=== PATIENT | female | born 1995 | race Caucasian/White ===

== ENCOUNTER 2021-08-25 23:09 | Emergency (ER) | payer OTHER, SELFPAY ==
[2021-08-25 23:21] VITALS: BP 149/83; PULSE 71; RESP 18; TEMP 36.6; O2SAT 98; BMI 29.2
--- NOTE | 2021-08-25 23:58 | ED_ITS ---
HPI - General Chief complaint: Vaginal Bleeding Stated complaint: vaginal bleeding, 7 weeks preg Source: patient Mode of arrival: ambulatory Limitations: no limitations History of Present Illness HPI Narrative: 26-year-old female presents with vaginal bleeding and lower abdominal cramping and is 7 weeks . 2 para 1 a 0. States that she had complicated with her 1st, needed emergency and is having anxiety regarding the abdominal pain and cramping. MD Complaint: abdominal pain and vaginal bleeding Onset (ago): day(s) (2) Pain Consistency: intermittent Location: pelvis Severity: moderate Severity scale (1-10): 4 Quality: Cramping Radiation: pelvis Relieving factors: none Associated symptoms: vaginal bleeding Vaginal discharge: none Vaginal bleeding: light Patient : Yes Number of Weeks : 7 OB History - Current : no complications OB History - Previous Pregnancies: other care: none and followed by OB Related Data : 2 Para: 1 Total number of abortions (spontaneous and elective): 0 Allergies Allergy/AdvReac Type Severity Reaction Status Date / Time No Known Allergies Allergy Unverified 05/01/20 19:09 [No Known Allergies*] pine trees Allergy Unknown Uncoded 12/13/16 00:00 Raspberry Allergy Unknown hives Uncoded 02/21/20 00:00 raspberry Allergy Unknown Uncoded 12/13/16 00:00 Review of Systems Review of Systems: Constitutional: No Fever, No Chills ENT/Mouth: No sore throat, No Rhinorrhea Eyes: No Eye Pain, No Redness Cardiovascular: No Chest Pain, No SOB Respiratory: No Cough, No Sputum, No Wheezing Gastrointestinal: positive Nausea, No Vomiting, No Diarrhea, positive abdominal pain, Genitourinary: positive irregular bleeding, No Dysuria, No Urinary Frequency, positive pelvic pain Musculoskeletal: No Myalgias Skin: No rash Neuro: No Weakness, No Headache Psych: No Anxiety/Panic, No Depression Heme/Lymph: No bruising, No Lymphadenopathy Endocrine: No Polyuria, No Polydipsia Yes all other systems are reviewed and are negative [facility] Past Medical History Attestation statement: The following information was validated with the patient. Source: old records reviewed Medical History Amenorrhea Asthma Dysmenorrhea Surgical History S/P : 2 Para: 1 Total number of abortions (spontaneous and elective): 0 Family History Family History Mother No problems noted. Maternal Aunt Cancer Brother No problems noted. Sister No problems noted. Sister No problems noted. Social History Social History Advance Directives: No Advance Directives Information Provided: Yes Patient : Yes Physical Exam Vital Signs: Vital Signs: Last Vital Signs Temp 98.2 F 08/25/21 23:59 Pulse 65 08/25/21 23:59 Resp 16 08/25/21 23:59 BP 128/72 08/25/21 23:59 Pulse Ox 97 08/25/21 23:59 BMI result Body Mass Index 29.2 Appearance: Alert. Oriented X3. Moderate emotional distress. Eyes: Pupils equal, round and reactive to light. ENT: Pharynx normal. Neck: Normal inspection. Neck supple. CVS: Normal heart rate and rhythm. Pulses normal. Respiratory: No respiratory distress. Breath sounds normal. Abdomen: Soft and nontender. Skin: Skin warm and dry. Normal skin color. Normal skin turgor. Extremities: No lower extremity edema. Gait well-balanced well coordinated. Neuro: No motor deficit. No sensory deficit. Cranial nerves 2-12 intact. : General: Yes bladder normal to palpation External Female Exam: normal external appearance Speculum Exam - Vagina: normal appearance of the vagina, normal palpation, no foreign bodies, no lacerations, no lesions, vaginal bleeding, No tissue present in vagina and nontender Speculum Exam - Cervix: normal appearance of the cervix, normal palpation, Cervical os closed, Abnormal cervical discharge present (Scant) bloody; Negative for malodorous and nontender Bimanual exam- vagina & uterus: normal bimanual exam, normal palpation, uterine size normal, bladder normal to palpation, consistency normal, normal palpation, No Cervical tenderness present and no cervical motion tenderness Bimanual Exam- Adnexa, other: normal adnexae OB/external & speculum: vaginal bleeding; No no foreign bodies and no tissue noted in vagina Course Course Course Narrative: 26-year-old female presents with 2 days of abdominal cramping and 1 day of scant bleeding and is approximately 7 weeks . Patient is visibly anxious, states that she has concerns because her 1st had complications which required emergent . Her 2-year-old daughter is healthy. Patient is sexually active, did not have sex yesterday, does not report any pain or bleeding with sex. Denies trauma or abuse. Does not report any fevers, chills, headaches, dizziness, or any other concerning symptoms at this time. Will order labs, complete pelvic exam, and hCG level. 12:20 a.m. pelvic exam completed with RN and ED integration technician as customer care assistant. No complications, patient tolerated procedure well. 12:40 a.m. hCG 3201. Likely too early for accurate ultrasound at this time. Will have patient follow-up with OBGYN as an outpatient. Blood type is O- positive. No need for RhoGAM at this time. Patient verbalized understanding of and agrees to plan of care discharge home and Understands signs and symptoms indicating need for emergent intervention. MDM - OB/Uterine Contractions MDM Narrative Medical decision making narrative: Threatened , ectopic Medical Records Attestation: I reviewed the patient's medical records. Lab Data Attestation: I reviewed the patient's lab results. Result diagrams: 08/26/21 00:15 08/26/21 00:15 Labs: Lab Results 08/26/21 08/26/21 08/26/21 Range/Units 00:15 00:15 00:15 WBC 8.7 (4.8-10.8) X10*3/uL RBC 3.98 L (4.20-5.50) X10*6/uL Hgb 12.9 (12.0-16.0) g/dl Hct 38.3 (37.0-47.0) % MCV 96.2 (80.0-98.0) fL MCH 32.4 (27.0-33.0) pg MCHC 33.7 (31.0-35.0) g/dl RDW 12.2 (11.0-16.0) % Plt Count 255 (160-400) X10*3/uL MPV 9.0 L (9.4-12.3) fL Immature Gran % (Auto) 0.3 (0.0-0.4) % Neut % (Auto) 58.3 (45-73) % Lymph % (Auto) 29.9 (20-40) % Bath % (Auto) 9.7 (2-11) % Eos % (Auto) 1.3 (0-4) % Baso % (Auto) 0.5 (0-2) % Lymph # (Auto) 2.6 (1.2-4.9) X10*3/uL Bath # (Auto) 0.8 (0.1-1.2) X10*3/uL Eos # (Auto) 0.1 (0.0-0.4) X10*3/uL Baso # (Auto) 0.0 (0.0-0.2) X10*3/uL Abs Immat Gran (auto) 0.03 (0.00-0.03) X10*3/uL Absolute Neuts (auto) 5.1 (2.0-8.3) x10*3/uL Absolute Nucleated RBC 0.000 (0.0-0.012) X10*3/uL Nucleated RBC % (auto) 0.0 (0.0-0.2) /100WBC Sodium 138 (135-145) mmol/L Potassium 4.0 (3.3-5.1) mmol/L Chloride 108 (96-108) mmol/L Carbon Dioxide 24 (22-29) mmol/L Anion Gap 10 L (12-20) BUN 8 L (9-16) mg/dL Creatinine 0.74 (0.5-1.4) mg/dL Estim Creat Clear Calc 112.7 Estimated GFR > 60 Random Glucose 113 (60-115) mg/dL Beta HCG, Quant 3251 mIU/mL Blood Type O Positive Procedures Perimortem Number of Weeks : 7 Discharge Plan Discharge Clinical Impression: Threatened Patient Disposition: Home, Self-Care Instructions: Threatened Miscarriage (ED) Additional Instructions: You were evaluated for 1st trimester vaginal bleeding. Please follow-up with OBGYN. I have referred you to Dr. Cameron. Please call and request an appo intment. You may also choose your prior OBGYN or physician of her choosing. HCG 3251. Blood type O positive. Thank you for choosing this emergency department for evaluation. Please follow-up with primary care physician as needed. Return to the emergency department for any new, concerning, or worsening symptoms. Referrals: Thom Cameron MD [Physician] - 2 days (Threatened miscarriage)
[2021-08-25 23:59] VITALS: BP 128/72; PULSE 65; RESP 16; TEMP 36.8; O2SAT 97
[2021-08-26 00:21] LABS: MANUAL DIFF FLAG NO
[2021-08-26 00:22] LABS: Basophils Percent Auto 0.5 % (0-2); Eosinophils Absolute Auto 0.1 X10*3/uL (0.0-0.4); Eosinophils Percent Auto 1.3 % (0-4); Hematocrit 38.3 % (37.0-47.0); Hemoglobin 12.9 g/dl (12.0-16.0); Imm Gran Abs Auto 0.03 X10*3/uL (0.00-0.03); Imm Gran Pct Auto 0.3 % (0.0-0.4); Lymphocytes Absolute Auto 2.6 X10*3/uL (1.2-4.9); Lymphocytes Percent Auto 29.9 % (20-40); Mean Corpuscular HGB Conc 33.7 g/dl (31.0-35.0); Mean Corpuscular Hemoglobin 32.4 pg (27.0-33.0); Mean Corpuscular Volume 96.2 fL (80.0-98.0); Monocytes Absolute Auto 0.8 X10*3/uL (0.1-1.2); Monocytes Percent Auto 9.7 % (2-11); Neutrophils Absolute Auto 5.1 x10*3/uL (2.0-8.3); Neutrophils Percent Auto 58.3 % (45-73); Platelet Count 255 X10*3/uL (160-400); Red Blood Count 3.98 X10*6/uL (4.20-5.50); Red Cell Distribution Width 12.2 % (11.0-16.0); White Blood Count 8.7 X10*3/uL (4.8-10.8)
[2021-08-26 00:36] LABS: Anion Gap 10 (12-20); Blood Urea Nitrogen 8 mg/dL (9-16); Carbon Dioxide 24 mmol/L (22-29); Chloride 108 mmol/L (96-108); Creatinine Clr Calc Pharmacy 112.7; Estimated Glomerular Filt Rate > 60; Glucose Random 113 mg/dL (60-115); Sodium 138 mmol/L (135-145)
[2021-08-26 00:43] LABS: HCG Quantitative 3251 mIU/mL
== END 2021-08-26 01:25 | disposition home or self-care (01) ==
PROVIDERS: Nurse Practitioner Family; Emergency Provider Student in an Organized Health Care Education/Training Program
DX: O26.91 Pregnancy related conditions, unspecified, first trimester (principal); O20.0 Threatened abortion; Z3A.01 Less than 8 weeks gestation of pregnancy; Z79.899 Other long term (current) drug therapy
CPT/HCPCS: 36415; 80048; 84702; 85025; 86900; 86901; 99284

== ENCOUNTER 2021-08-26 15:17 | Outpatient (REF) | payer OTHER, SELFPAY ==
--- NOTE | ~2021-08-26 | US_ITS ---
EXAMINATION: US OBSTETRICAL CLINICAL INFORMATION: Threatened . Quantitative beta hCG 10/14/2000. Abdominal cramping and bleeding. COMPARISON: None. LMP: 06/08/2021. Gestational age by maternal dates is 11 weeks 2 days. Estimated date of delivery by maternal dates is 03/15/2022. TECHNIQUE: Transabdominal and transvaginal 1st trimester OB ultrasound. Transvaginal exam was performed for better visualization of the gestational sac. FINDINGS: The uterus is normal in size and shape. There is an intrauterine gestational sac. This may be positioned slightly low within the endometrial cavity. [place]-rump length measures 0.4 cm which would suggest gestational age 6 weeks 1 day with estimated date of delivery of 04/20/2022. This is significantly behind date from LMP by over 1 month. There is a low heart rate of 76 bpm. There is a yolk sac. There is a hypoechoic area adjacent to the gestational sac questionable for subchorionic hemorrhage. This measures 1.6 cm. There are small echogenic foci in the left uterine fundus and cervix questionable for calcifications. The right ovary is normal-appearing and measures 3.4 x 2 x 2 cm. There is a 1.5 cm right ovarian cyst. Left ovary is normal-appearing and measures 2.8 x 1.2 x 1.8 cm. There is a small amount of fluid in the maternal pelvis. US/US OB <= 14 weeks fetus IMPRESSION: Single intrauterine gestation with ultrasound gestational age of 6 weeks 1 day +/- 4 days. Estimated date of delivery is 04/20/2022 +/- 4 days. This is behind date from LMP. There is a low heart rate of 76 bpm. There is a 1.6 cm hypoechoic area adjacent to the gestational sac questionable for subchorionic hemorrhage. No adnexal mass. Small amount of maternal ascites.
== END 2021-08-26 15:18 | disposition home or self-care (01) ==
LOC: HO.US 15:17
PROVIDERS: Visit Provider Obstetrics & Gynecology
DX: O20.0 Threatened abortion (principal); Z3A.11 11 weeks gestation of pregnancy
CPT/HCPCS: 76801

== ENCOUNTER 2021-08-27 08:16 | Outpatient (REF) | payer OTHER, SELFPAY ==
[2021-08-27 17:03] LABS: CT PCR NOT DETECTED (Not Detect.); NG PCR NOT DETECTED (Not Detect.)
== END 2021-08-27 08:17 | disposition home or self-care (01) ==
LOC: HO.LAB 08:16
PROVIDERS: Visit Provider Obstetrics & Gynecology
DX: O20.0 Threatened abortion (principal)
CPT/HCPCS: 87491; 87591; 99212

== ENCOUNTER 2021-10-07 11:51 | Outpatient (REF) | payer OTHER, SELFPAY ==
[2021-10-07 12:53] LABS: HCG Quantitative < 2 mIU/mL
== END 2021-10-07 11:52 | disposition home or self-care (01) ==
LOC: HO.LAB 11:51
PROVIDERS: PCP Nurse Practitioner Family; Visit Provider Obstetrics & Gynecology
DX: O03.9 Complete or unspecified spontaneous abortion without complication (principal)
CPT/HCPCS: 36415; 84702

== ENCOUNTER → 2021-10-12 11:45 | Outpatient (BNVA) | payer OTHER, SELFPAY | PROVIDERS: Visit Provider Obstetrics & Gynecology ==

== ENCOUNTER → 2022-03-23 13:05 | Outpatient (BNVA) | payer OTHER, SELFPAY | PROVIDERS: Visit Provider Advanced Practice Midwife | DX: O99.619 Diseases of the digestive system complicating pregnancy, unspecified trimester (principal); O34.219 Maternal care for unspecified type scar from previous cesarean delivery; O09.899 Supervision of other high risk pregnancies, unspecified trimester; K59.00 Constipation, unspecified; Z87.59 Personal history of other complications of pregnancy, childbirth and the puerperium; Z87.42 Personal history of other diseases of the female genital tract | CPT/HCPCS: 99212 ==

== ENCOUNTER 2022-03-26 11:27 | Outpatient (REF) | payer OTHER, SELFPAY ==
--- NOTE | ~2022-03-26 | US_ITS ---
EXAMINATION: US OBSTETRICAL ULTRASOUND CLINICAL INFORMATION: Positive test COMPARISON: None. LMP: 01/27/2022. Gestational age by maternal dates is 8 weeks 2 days. Estimated date of delivery by maternal dates is 11/03/2022. TECHNIQUE: Transabdominal first trimester OB ultrasound FINDINGS: There is a single intrauterine gestational sac with visible yolk sac, embryo/fetus, and cardiac activity. There is no significant subchorionic hemorrhage or hematoma. HR: 169 beats per minute. CRL (crown rump length): 2.1 cm (8 weeks 6 days +/- 4 days). JI (estimated date of delivery): 10/30/2022 +/- 4 days. MATERNAL ADNEXA: The ovaries are normal. There is no fluid in the pelvis. US/US OB <= 14 weeks fetus IMPRESSION: 1. Single intrauterine gestation with ultrasound gestational age of 8 weeks 6 days +/- 4 days. 2. Estimated date of delivery is 10/30/2022 +/- 4 days. 3. No maternal adnexal mass or pelvic ascites.
== END 2022-03-26 11:28 | disposition home or self-care (01) ==
LOC: HO.US 11:27
PROVIDERS: Visit Provider Advanced Practice Midwife
DX: O99.611 Diseases of the digestive system complicating pregnancy, first trimester (principal); K59.00 Constipation, unspecified; Z3A.08 8 weeks gestation of pregnancy; Z87.42 Personal history of other diseases of the female genital tract
CPT/HCPCS: 76801

== ENCOUNTER 2022-04-02 12:05 | Emergency (ER) | payer OTHER, SELFPAY ==
[2022-04-02 12:08] VITALS: BP 145/95; PULSE 70; RESP 18; TEMP 37.1; O2SAT 99; BMI 24.7
[2022-04-02 12:23] LABS: Hematocrit 46.2 % (37.0-47.0); Hemoglobin 16.2 g/dl (12.0-16.0); Mean Corpuscular HGB Conc 35.1 g/dl (31.0-35.0); Mean Corpuscular Hemoglobin 32.2 pg (27.0-33.0); Mean Corpuscular Volume 91.8 fL (80.0-98.0); Mean Platelet Volume 8.6 fL (9.4-12.3); Platelet Count 315 X10*3/uL (160-400); Red Blood Count 5.03 X10*6/uL (4.20-5.50); White Blood Count 13.7 X10*3/uL (4.8-10.8)
[2022-04-02 12:40] LABS: Anion Gap 15 (12-20); Blood Urea Nitrogen 7 mg/dL (9-16); Calcium 11.5 mg/dL (8.4-10.2); Carbon Dioxide 25 mmol/L (22-29); Chloride 97 mmol/L (96-108); Creatinine Clr Calc Pharmacy 96.6; Estimated Glomerular Filt Rate > 60; Glucose Random 108 mg/dL (60-115); Potassium 3.9 mmol/L (3.3-5.1); Sodium 133 mmol/L (135-145)
[2022-04-02 12:43] LABS: COVID-19 Test Negative (Negative); IDNOW Serial# 16C4AD1C
[2022-04-02 13:08] LABS: HCG Quantitative 115259 mIU/mL
--- NOTE | 2022-04-02 15:49 | PC.NURSE ---
ATTEMPTED TO CALL PATIENT INTO ED. NO ANSWER IN WAITING ROOM
--- NOTE | 2022-04-02 16:27 | PC.NURSE ---
ATTEMPTED FOR SECOND TIME TO CALL PATIENT INTO ED. NO ANSWER IN WAITING ROOM
== END 2022-04-02 16:37 | disposition left against medical advice (07) ==
LOC: HO.ED 16:33
PROVIDERS: Emergency Provider Emergency Medicine
DX: R50.9 Fever, unspecified (principal); R11.10 Vomiting, unspecified; Z20.822 Contact with and (suspected) exposure to COVID-19; Z79.899 Other long term (current) drug therapy
CPT/HCPCS: 80048; 84702; 85027; 87635; 99281; 99283